=== PATIENT | male | born 1950 | race Caucasian/White ===

== ENCOUNTER 2021-05-10 21:28 | Emergency (ER) | payer OTHER, SELFPAY ==
--- NOTE | ~2021-05-10 | XR_ITS ---
EXAMINATION: XR abdomen/kub 1V DATE: 05/10/2021 23:05 INDICATION: Constipation. TECHNIQUE: A supine view of the abdomen on 2 radiographs was obtained. COMPARISON: None. FINDINGS: There are no dilated loops of bowel. There is a moderate volume of stool in the colon. IMPRESSION: 1. Nonobstructive bowel gas pattern. Reviewed, dictated and finalized at location A.
[2021-05-10 22:14] VITALS: BP 171/70; PULSE 88; RESP 16; TEMP 36.6; O2SAT 98
--- NOTE | 2021-05-11 00:38 | ED.GENADULT ---
HPI - General Adult General Chief complaint: Unspecified Stated complaint: Constipation/Irregular BM Time Seen by Provider: 05/10/21 23:39 History of Present Illness HPI narrative: Patient is a 71-year-old gentleman who presents the emergency department with chief complaint of fecal impaction. Patient reports that he has been trying to have a bowel movement but has very hard stool. Patient states that it is exquisitely painful when he tries to defecate reports has been unable to pass a bowel movement. The patient denies vomiting denies severe abdominal pain Related Data Allergies Allergy/AdvReac Type Severity Reaction Status Date / Time No Known Allergies Allergy Verified 05/10/21 23:43 Review of Systems Review of Systems: A 10 system review of systems was completed on the patient and is negative except for what is stated in the HPI. Nursing and ancillary documentation was reviewed. 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 HEAD: Normocephalic, atraumatic. EYES: PERRLA and EOMI. ENT: Nares clear, no rhinorrhea or epistaxis. Mucous membranes moist. NECK: Supple. CHEST: Clear to auscultation. No respiratory distress. HEART: Regular rate and rhythm. No murmur heard. Normal peripheral pulses. ABDOMEN: Soft, nontender, nondistended, normal active bowel sounds. : There is hard stool and a fecal impaction present on rectal exam EXTREMITIES: Normal range of motion. No edema. SKIN: Warm, dry, no rash. NEURO: No focal deficits. Alert and oriented x3. PSYCH: Normal mood and affect. Course Vital Signs Vital signs: Vital Signs Temperature 36.6 C 05/10/21 22:14 Pulse Rate 88 05/10/21 22:14 Respiratory Rate 16 05/10/21 22:14 Blood Pressure 171/70 H 05/10/21 22:14 Pulse Oximetry 98 05/10/21 22:14 Temperature 36.6 C 05/10/21 22:14 Pulse Rate 88 05/10/21 22:14 Respiratory Rate 16 05/10/21 22:14 Blood Pressure 171/70 H 05/10/21 22:14 Pulse Oximetry 98 05/10/21 22:14 Procedures Rectal Disimpaction Rectal Disimpaction #1: Rectal Disimpaction Date: 05/11/21 Rectal Disimpaction Time: 00:39 Time out performed rectal disimpaction: Yes Indication: fecal impaction Procedural Sedation: No Sedation/Analgesia: none Technique: manual disimpaction with gloved finger Result: significant stool output Patient Tolerated Procedure: well Complications: none Medical Decision Making Vital Signs Vital Signs: Vital Signs Temperature 36.6 C 05/10/21 22:14 Pulse Rate 88 05/10/21 22:14 Respiratory Rate 16 05/10/21 22:14 Blood Pressure 171/70 H 05/10/21 22:14 Pulse Oximetry 98 05/10/21 22:14 Temperature 36.6 C 05/10/21 22:14 Pulse Rate 88 05/10/21 22:14 Respiratory Rate 16 05/10/21 22:14 Blood Pressure 171/70 H 05/10/21 22:14 Pulse Oximetry 98 05/10/21 22:14 Discharge Plan Discharge Clinical Impression: Fecal impaction Patient Disposition: Home, Self-Care Condition: Stable Instructions: Antibiotic Form, Fecal Impaction (ED) Prescriptions: New docusate sodium [Colace] 100 mg cap
[2021-05-11 01:40] VITALS: BP 167/74; PULSE 82; RESP 16; O2SAT 99
== END 2021-05-11 01:45 | disposition home or self-care (01) ==
PROVIDERS: Emergency Provider Emergency Medicine; PCP Internal Medicine
DX: K56.41 Fecal impaction (principal); E78.5 Hyperlipidemia, unspecified; Z98.49 Cataract extraction status, unspecified eye; Z96.1 Presence of intraocular lens
CPT/HCPCS: 74018; 99283

== ENCOUNTER 2023-05-14 00:27 | Day surgery (SDC) | payer OTHER, SELFPAY ==
[2023-05-06 12:26] VITALS: BMI 22.6
[2023-05-14 09:25] VITALS: BP 132/65; PULSE 82; RESP 16; TEMP 36.4; O2SAT 97; BMI 22.5
--- NOTE | 2023-05-14 10:03 | PM.HPGS ---
History of Present Illness History of Present Illness Consent: Risks, benefits, and alternatives have been discussed and questions answered. Patient agrees to proceed with procedure. Chief complaint: Personal h/o colon polyps Narrative: Byron Malhotra is a 73 year old male Presents for colonoscopy. Patient does have a very distant history of a diminutive colon polyp. Histology was never established as specimen apparently was lost. Most recent colonoscopy 2018 was unremarkable. Family history is significant the patient's sister had colon cancer. Patient presents today for surveillance colonoscopy. Review of Systems Review of Systems: Review of systems noncontributory. [facility] Past Medical History Medical History Erectile dysfunction Hyperlipidemia Hypertension Surgical History Surgical History History of cataract removal with insertion of prosthetic lens 09/19/21 History of wisdom tooth extraction Social History Social History Smoking status: Never smoker Second hand tobacco smoke exposure: Yes Alcohol intake: never Substance use: never Substance use type: does not use Lack of Transportation: No Lack of Food: Never True Current Housing: I Have Housing Concerned About Future Housing: No Difficulty Paying Gas/Electric Bills: No Difficulty Paying for Meds: No Currently Unemployed: No Education: High School Diploma/GED Difficulty w/ Childcare or Family Care: No Living arrangements: other Additional living arrangements comments: with sp Occupation/Education: retired 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 [place] Gender identity (if verbalized by the patient): Male Sexual Orientation (if Verbalized by the Patient): Straight or Heterosexual Meds Home Medications and Allergies Home Medications Medication Instructions Recorded Confirmed Type aspirin 81 mg tablet,delayed 81 mg PO DAILY #90 tabs 07/15/20 05/14/23 Rx release (Adult Aspirin Regimen) felodipine 5 mg tablet,extended 5 mg PO DAILY #90 tabs 12/14/22 05/14/23 Rx release 24 hr ezetimibe 10 mg-simvastatin 20 mg 1 tablet PO QHS #90 tabs 02/04/23 05/14/23 Rx tablet lisinopril 40 mg tablet 40 mg PO DAILY #90 tabs 02/04/23 05/14/23 Rx donepezil 10 mg tablet (Aricept) 10 mg PO QHS #30 tabs 03/08/23 05/14/23 Rx Allergies Allergy/AdvReac Type Severity Reaction Status Date / Time No Known Allergies Allergy Verified 05/14/23 09:31 Vital Signs Vital Signs - 24 hr 05/14/23 09:25 Temperature 97.5 F L Pulse Rate 82 Respiratory Rate 16 Blood Pressure 132/65 Pulse Oximetry 97 Oxygen Delivery Room Air Exam Narrative: Physical exam reveals patient to be alert. Vital signs stable. HEENT exam is unremarkable. Patient is anicteric. Lungs are clear to auscultation and percussion. Heart is without murmur or extra sounds. Abdomen bowel sounds are present soft nontender with no organomegaly. Digital external rectal exam normal. Assessment and Plan Assessment and plan (1) History of colon polyps: Code(s): Z86.010 - Personal history of colonic polyps Status: Acute Assessment and Plan: Patient has a distant history of a diminutive polyp. His sister has had colon cancer plan for neoplasia screening now consider this at 5 year intervals. (2) Screening for colon cancer: Code(s): Z12.11 - Encounter for screening for malignant neoplasm of colon Status: Acute
[2023-05-14] MEDS: LACTATED RINGERS 1,000 ML 150 ML IV CONT (10:14)
--- NOTE | 2023-05-14 10:29 | WPDANESEPPF ---
Anes - Initial Pre Proc Eval Procedure: Operation Date: 05/14/23 10:30 Proposed Procedures p Colonoscopy - Yevgeniy Souza MD Date/Time: 05/14/23 10:29 Surgeon: Yevgeniy Souza MD Pre Op Diagnosis: Personal h/o colon polyps Patient Data Age: 73 Gender: M Height: 1.7 m Weight: 65.3 kg Last Vital Signs Temp 97.5 F L 05/14/23 09:25 Pulse 82 05/14/23 09:25 Resp 16 05/14/23 09:25 BP 132/65 05/14/23 09:25 Pulse Ox 97 05/14/23 09:25 O2 Del Method Room Air 05/14/23 09:25 Allergies Allergy/AdvReac Type Severity Reaction Status Date / Time No Known Allergies Allergy Verified 05/14/23 09:31 Home Medications Medication Instructions Recorded Confirmed Type aspirin 81 mg tablet,delayed 81 mg PO DAILY #90 tabs 07/15/20 05/14/23 Rx release (Adult Aspirin Regimen) felodipine 5 mg tablet,extended 5 mg PO DAILY #90 tabs 12/14/22 05/14/23 Rx release 24 hr ezetimibe 10 mg-simvastatin 20 mg 1 tablet PO QHS #90 tabs 02/04/23 05/14/23 Rx tablet lisinopril 40 mg tablet 40 mg PO DAILY #90 tabs 02/04/23 05/14/23 Rx donepezil 10 mg tablet (Aricept) 10 mg PO QHS #30 tabs 03/08/23 05/14/23 Rx Patient hx anesthesia problems: none Family hx anesthesia problems: none Results Review: All pre-operative results and documents have been reviewed as part of the pre-operative evaluation. [facility] Past Medical History Medical History Erectile dysfunction Hyperlipidemia Hypertension Surgical History Surgical History History of cataract removal with insertion of prosthetic lens 09/19/21 History of wisdom tooth extraction Social History Social History Smoking status: Never smoker Second hand tobacco smoke exposure: Yes Alcohol intake: never Substance use: never Substance use type: does not use Lack of Transportation: No Lack of Food: Never True Current Housing: I Have Housing Concerned About Future Housing: No Difficulty Paying Gas/Electric Bills: No Difficulty Paying for Meds: No Currently Unemployed: No Education: High School Diploma/GED Difficulty w/ Childcare or Family Care: No Living arrangements: other Additional living arrangements comments: with sp Occupation/Education: retired 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[place] Gender identity (if verbalized by the patient): Male Sexual Orientation (if Verbalized by the Patient): Straight or Heterosexual Anes - Eval Final PreProcedure Day of Procedure 05/14/23 10:29 Patient weight: normal Heart: regular rate and rhythm Lungs: clear to auscultation Airway: Mallampati scale class II Neurological: alert and oriented Last oral intake: >/= 8 hours ASA classification: II Emergent: no Anesthetic plan: proceed Anesthesia type and monitoring: general GIVS and standard monitoring Results Review: All pre-operative results and documents have been reviewed as part of the pre-operative evaluation. Informed Consent: The patient's anesthetic plan and its attendant risks and benefits were discussed with the patient/family/POA. Questions were solicited and answers provided to the satisfaction of the patient/family/POA.
[2023-05-14 11:16] VITALS: BP 88/36; PULSE 64; RESP 16; O2SAT 96
[2023-05-14 11:26] VITALS: BP 101/37; PULSE 53; RESP 16; O2SAT 100
[2023-05-14 11:36] VITALS: BP 105/44; PULSE 50; RESP 16; O2SAT 100
[2023-05-14 11:46] VITALS: BP 105/44; PULSE 72; RESP 16; O2SAT 100
== END 2023-05-14 12:12 | disposition home or self-care (01) ==
PROVIDERS: PCP Family Medicine; Visit Provider Internal Medicine Gastroenterology
PROC: 0DJD8ZZ Inspection of Lower Intestinal Tract, Via Natural or Artificial Opening Endoscopic (ICD-10-PCS; CPT 45378; principal; 2023-05-14 10:30)
DX: Z12.11 Encounter for screening for malignant neoplasm of colon (principal); K64.8 Other hemorrhoids; K57.30 Diverticulosis of large intestine without perforation or abscess without bleeding; Z86.010 Personal history of colon polyps; Z80.0 Family history of malignant neoplasm of digestive organs; I10 Essential (primary) hypertension; E78.5 Hyperlipidemia, unspecified; Z79.82 Long term (current) use of aspirin
CPT/HCPCS: 45378; J2371; J2704; J7120

== ENCOUNTER 2025-04-30 14:29 | Outpatient (CLI) | payer OTHER, SELFPAY ==
--- NOTE | ~2025-04-30 | MR_ITS ---
EXAMINATION: MR brain/brain stem wo con DATE: 04/30/2025 15:16 INDICATION: Neuro cognitive disorder with Lewy bodies. Speech deficit. Memory problem. TECHNIQUE: Magnetic resonance imaging (MRI) of the brain and brainstem was performed without intravenous contrast. COMPARISON: None. FINDINGS: Metal artifact from the patient's mouth obscures the anteroinferior brain on some sequences. There are scattered areas of nonspecific increased T2- weighted signal intensity in the cerebral white matter. There is no intracranial hemorrhage, acute infarction, or abnormal intracranial mass lesion. The ventricles are normal in size. There are likely changes of ocular lens replacement surgeries. There is mild mucosal thickening in the ethmoid sinuses. The mastoid air cells are normal. IMPRESSION: 1. Moderate nonspecific cerebral white matter disease, which likely represents chronic small vessel ischemic disease. Reviewed, dictated and finalized at location E.
== END 2025-04-30 14:30 | disposition home or self-care (01) ==
LOC: MICIMG 14:29
PROVIDERS: PCP Internal Medicine; Visit Provider Nurse Practitioner
DX: G31.83 Neurocognitive disorder with Lewy bodies (principal); R90.82 White matter disease, unspecified; F02.80 Dementia in other diseases classified elsewhere, unspecified severity, without behavioral disturbance, psychotic disturbance, mood disturbance, and anxiety; G20.A1 Parkinson's disease without dyskinesia, without mention of fluctuations; R41.3 Other amnesia
CPT/HCPCS: 70551